=== PATIENT | male | born 1960 | race Caucasian/White ===

== ENCOUNTER 2024-03-16 10:52 | Emergency (ER) | payer MEDICAID ==
[~2024-03-16] VITALS: Ht 167.6 cm; Wt 81.6 kg
[2024-03-16 11:05] VITALS: O2SAT 98
[2024-03-16] MEDS ORDERED: BO1 TP (13:08)
[2024-03-16] MEDS: ACETAMINOPHEN 500MG TABLET PO ONE (13:20)
[2024-03-16] MEDS: BACITRACIN ZINC OINT UDPKT TOP ONE (13:20)
[2024-03-16 13:23] VITALS: BP 148/70; PULSE 62; RESP 16; TEMP 36.66960; O2SAT 98
== END 2024-03-16 13:45 | disposition home or self-care (01) ==
LOC: ER 10:52
DX: S51.801A Unspecified open wound of right forearm, initial encounter (principal); X58.XXXA Exposure to other specified factors, initial encounter; Y93.89 Activity, other specified; Y92.89 Other specified places as the place of occurrence of the external cause; Y99.8 Other external cause status
CPT/HCPCS: 73090; 99283; Z7610